=== PATIENT | male | born 1950 | race Caucasian/White ===

== ENCOUNTER 2021-11-30 11:55 | Outpatient (REF) | payer MEDICARE, OTHER, SELFPAY ==
--- NOTE | ~2021-11-30 | XR_ITS ---
EXAMINATION: XR LUMBAR SPINE XR CERVICAL SPINE CLINICAL INFORMATION: Metastatic CA. COMPARISON: None TECHNIQUE: 6 views lumbar spine AP views cervical spine. FINDINGS: LUMBAR SPINE: There is normal lumbar lordosis. There is loss of superior endplate height L1 and L3 vertebra likely old compression deformities. The rest of the vertebral heights are normal. There is moderate loss of L5-S1, L4-L5, L2-L3 and L1-L2 disc heights. No aggressive lytic or sclerotic process seen. There is atherosclerotic calcification of abdominal aorta. On oblique views there is no pars defect or listhesis. The facet joints are symmetrical and normal. CERVICAL SPINE: There is mild straightening of cervical lordosis. There is loss of C4-C5, C5-C6, C6-C7 disc heights with moderate ventral spondylosis. Mild narrowing of neural foramina is seen at all disc levels from uncovertebral hypertrophic changes on oblique views. There is no visible acute fracture, dislocation. There is bilateral facet joint arthropathy. No lytic or sclerotic process seen. XR/XR lumbar spine 4V min IMPRESSION: 1. 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 Correlate with any outside lumbar spine x-rays if available. 2. Bilateral narrowing of neural foramina from uncovertebral and mild facet joint arthropathy slightly greater on the left side from C3-C4 through C6-C7 disc levels. No acute fractures seen.
--- NOTE | ~2021-11-30 | XR_ITS ---
EXAMINATION: XR LUMBAR SPINE XR CERVICAL SPINE CLINICAL INFORMATION: Metastatic CA. COMPARISON: None TECHNIQUE: 6 views lumbar spine AP views cervical spine. FINDINGS: LUMBAR SPINE: There is normal lumbar lordosis. There is loss of superior endplate height L1 and L3 vertebra likely old compression deformities. The rest of the vertebral heights are normal. There is moderate loss of L5-S1, L4-L5, L2-L3 and L1-L2 disc heights. No aggressive lytic or sclerotic process seen. There is atherosclerotic calcification of abdominal aorta. On oblique views there is no pars defect or listhesis. The facet joints are symmetrical and normal. CERVICAL SPINE: There is mild straightening of cervical lordosis. There is loss of C4-C5, C5-C6, C6-C7 disc heights with moderate ventral spondylosis. Mild narrowing of neural foramina is seen at all disc levels from uncovertebral hypertrophic changes on oblique views. There is no visible acute fracture, dislocation. There is bilateral facet joint arthropathy. No lytic or sclerotic process seen. XR/XR cervical spine 4V IMPRESSION: 1. 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 Correlate with any outside lumbar spine x-rays if available. 2. Bilateral narrowing of neural foramina from uncovertebral and mild facet joint arthropathy slightly greater on the left side from C3-C4 through C6-C7 disc levels. No acute fractures seen.
== END 2021-11-30 11:56 | disposition home or self-care (01) ==
LOC: HO.XRAY 11:55
PROVIDERS: PCP Internal Medicine; Visit Provider Psychiatry & Neurology Neurology
DX: C80.1 Malignant (primary) neoplasm, unspecified (principal)
CPT/HCPCS: 72050; 72110